=== PATIENT | male | born 1940 | race Caucasian/White ===

== ENCOUNTER → 2018-02-03 | Outpatient (CLI) | payer OTHER ==
[2015-11-24 09:54] VITALS: BP 146/76
--- NOTE | 2018-02-04 08:36 | MRI ---
HISTORY: Low back pain, left-sided sciatica, history of prostate cancer Study: MRI lumbar spine without contrast Comparison: None Technique: Multiplanar multi-sequence MRI of the lumbar spine was obtained. Sagittal T1, sagittal T2 , and stir weighted images, axial T1, and axial T2 images were obtained. Findings: Multilevel facet arthropathy is present worse at L3-L4 resulting grade 1 anterolisthesis of L3 on L4. Vertebral body heights are preserved. No abnormal cord or marrow signal is identified. The conus med ullaris terminates at T12-L1. 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 Further evaluation with CT is recommended. Bilateral simple appearing renal cysts are partially visualized. T12 -- L1: No significant stenosis identified. L1 -- L2: Mild facet degenerative changes and a broad-based disc bulge without significant stenosis i dentified. L2 -- L3: [id number] facet degenerative/hypertrophic changes without significant stenosis ident ified. L3 -- L4: There is disc space narrowing and facet arthropathy resulting in grade 1 anterolisthesis. T here is a circumferential broad-based disc bulge, with focal asymmetric disc protrusion to the left t hat is extruded superiorly resulting in severe left foraminal stenosis and nerve encroachment. There is moderate to severe bilateral lateral recess narrowing and moderate right foraminal stenosis. L4 -- L5: Facet hypertrophy changes and a broad-based disc bulge are seen at this level resulting in mild bilateral lateral recess narrowing. The foramina appear patent. L5 -- S1: Moderate facet degenerative changes without significant stenosis. IMPRESSION: 1. Multilevel degenerative changes as described, most severe at L3-L4 where there is a left paracentr al disc protrusion that is extruded superiorly resulting in severe left foraminal stenosis. There is also [id number] bilateral lateral recess stenosis and moderate right foraminal stenosis at th is level. 2. Multilevel facet arthropathy with grade 1 anterolisthesis of L3 on L4. 3. 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 CTA of the abdomen and pelvis is recommended for further evaluation. Reported By:
== END | disposition home or self-care (01) ==
LOC: RAD 15:17
PROVIDERS: ATTEND Internal Medicine
DX: M54.32 Sciatica, left side (principal); M51.26 Other intervertebral disc displacement, lumbar region; M47.896 Other spondylosis, lumbar region
CPT/HCPCS: 72148